=== PATIENT | male | born 1980 | race Caucasian/White ===

== ENCOUNTER 2024-01-12 08:14 | Day surgery (SDC) | payer BC ==
[2024-01-08 11:00] LABS: BASOPHILS # (AUTO) 0.1 X10'3 (0-0.2); BASOPHILS % (AUTO) 1.3 % (0-1); EOSINOPHILS # (AUTO) 0.1 X10'3 (0-0.9); EOSINOPHILS % (AUTO) 1.6 % (0-6); LYMPHOCYTES # (AUTO) 2.5 X10'3 (1.1-4.8); LYMPHOCYTES % (AUTO) 34.1 % (21-51); MEAN CORPUSCULAR HEMOGLOBIN 30.6 PG (27.0-31.0); MEAN CORPUSCULAR HGB CONC 33.1 g/dL (33.0-36.5); MEAN CORPUSCULAR VOLUME 92.4 FL (78-98); MEAN PLATELET VOLUME 8.1 FL (7.4-10.4); MONOCYTES # (AUTO) 0.6 X10'3 (0-0.9); MONOCYTES % (AUTO) 8.8 % (2-12); NEUTROPHILS # (AUTO) 3.9 X10'3 (1.8-7.7); NEUTROPHILS % (AUTO) 54.2 % (42-75); PRE OP HEMOGLOBIN 15.9 g/dL (14.0-17.9); PRE OP PLATELET COUNT 280 X10'3 (140-440); PRE OP WHITE BLOOD COUNT 7.2 10'3 (4.8-10.8); RED CELL DISTRIBUTION WIDTH 13.9 % (11.5-14.5)
[2024-01-08 11:18] LABS: ALBUMIN 4.2 G/DL (3.4-5.0); ALBUMIN/GLOBULIN RATIO 1.2 (1.1-1.5); ALKALINE PHOSPHATASE 58 IU/L (46-116); BLOOD UREA NITROGEN 11 MG/DL (7-18); BUN/CREATININE RATIO 10.7 (10.0-20.0); CALCIUM 9.4 MG/DL (8.5-10.1); CHLORIDE 104 MMOL/L (99-107); CREATININE 1.03 MG/DL (0.60-1.10); PRE OP ALT 47 U/L (30-65); PRE OP ANION GAP 6 (8-16); PRE OP AST 31 U/L (10-37); PRE OP BILIRUB, TOTAL 0.9 MG/DL (0.0-1.0); PRE OP GLUCOSE 94 MG/DL (70-104); PRE OP POTASSIUM 4.6 MMOL/L (3.4-5.1); PRE OP SODIUM 138 MMOL/L (135-145); TOTAL CARBON DIOXIDE 27.6 MMOL/L (24-32); TOTAL PROTEIN 7.8 G/DL (6.4-8.2); eGFR 78 ML/MIN
[2024-01-12] VITALS (8 sets, daily range): BP systolic 114–163; BP diastolic 75–110; PULSE 55–76; RESP 12–16; TEMP 97.2; O2SAT 97–99
[~2024-01-12] VITALS: Ht 188 cm; Wt 111.9 kg
[~2024-01-12 08:14] MED LIST: NO HOME MEDS; cefazolin 2gm/D5W 100mL 100 ML IV ONE
[2024-01-12] MEDS ORDERED: ondansetron/PF 4mg/2ml inj IV PRN (08:40)
[2024-01-12] MEDS ORDERED: meperidine/PF 25mg/ml syringe IV PRN ×2 (08:40)
[2024-01-12] MEDS ORDERED: proCHLORperazine 10 MG/2 ml inj IV PRN (08:40)
[2024-01-12] MEDS ORDERED: ringers solution, lacted 1,000 ML IV SCH (08:40)
[2024-01-12] MEDS ORDERED: morphine 4 MG/ML inj SYRINge IV PRN (08:40)
[2024-01-12] MEDS ORDERED: morphine 2 MG/ML inj. syringe IV PRN (08:40)
[2024-01-12] MEDS: famotidine 20mg tablet PO ONE (08:56)
[2024-01-12] MEDS: ringers solution, lacted 1,000 ML IV SCH (08:56)
[2024-01-12] MEDS ORDERED: fentaNYL/PF 50MCG/1 ML 2ML syringe ONE (09:04)
[2024-01-12] MEDS ORDERED: midazolam 1 mg/ML 2ml injection ONE ×2 (09:04→09:23)
[2024-01-12] MEDS ORDERED: LIDOcaine 0.5% (5mg/ml) 50ml vial ONE (09:05)
[2024-01-12] MEDS ORDERED: propofol inj 20 ML IV ONE (09:05)
[2024-01-12] MEDS: BUPIVAcaine/PF 2.5mg/ml (0.25%) 10ml vial ONE (09:56)
[2024-01-12] MEDS: meperidine/PF 25mg/ml syringe IV PRN (10:56)
== END 2024-01-12 11:55 | disposition home or self-care (01) ==
LOC: PAS 08:14
PROVIDERS: ATTEND Orthopaedic Surgery Hand Surgery
DX: G56.01 Carpal tunnel syndrome, right upper limb (principal); M19.031 Primary osteoarthritis, right wrist; Z79.899 Other long term (current) drug therapy; Z98.890 Other specified postprocedural states
CPT/HCPCS: 25820; 36415; 64721; 80053; 82948; 85025; 93005; C1713; J0690; J2175; J2250; J2704; J3010; J3490; J7030; J7120; Z7506; Z7508; Z7512; A4618; A6449; A7000